=== PATIENT | female | born 1995 ===

== ENCOUNTER 2016-12-10 18:41 | Emergency (ER) | payer SELFPAY ==
[2016-12-10 19:04] VITALS: BP 98/60; TEMP 98.7
--- NOTE | 2016-12-10 19:37 | C.PDOC ---
History Of Present Illness 21 y/o female presents to ED with c/o sore throat onset 2 hours ago. Patient reports pain radiates to left ear. Notes pain with swallowing. Denies difficulty breathing. Patient has not taken anything for pain. Time Seen by Provider: 12/10/16 19:07 Chief Complaint (Nursing): ENT Problem History Per: Patient History/Exam Limitations: no limitations Onset/Duration Of Symptoms: Days Current Symptoms Are (Timing): Still Present Recent travel outside of the [place]: No Past Medical History Reviewed: Historical Data, Nursing Documentation, Vital Signs Vital Signs: Last Vital Signs Temp 98.7 F 12/10/16 19:01 Pulse 75 12/10/16 20:27 Resp 18 12/10/16 20:27 BP 98/60 L 12/10/16 19:01 Pulse Ox 98 12/10/16 20:27 - Medical History PMH: No Chronic Diseases Surgical History: No Surg Hx Family History: States: Unknown Family Hx - Social History Hx Alcohol Use: No Hx Substance Use: No - Immunization History Hx Tetanus Toxoid Vaccination: Yes Hx Influenza Vaccination: No Hx Pneumococcal Vaccination: No Review Of Systems Except As Marked, All Systems Reviewed And Found Negative. Constitutional: Negative for: Fever, Chills ENT: Positive for: Throat Pain. Negative for: Ear Discharge, Nose Congestion Cardiovascular: Negative for: Chest Pain Respiratory: Negative for: Wheezing Gastrointestinal: Negative for: Nausea, Vomiting Skin: Negative for: Rash Neurological: Negative for: Headache, Dizziness Physical Exam - Physical Exam Appears: Non-toxic, No Acute Distress Skin: Normal Color, Warm, Dry Head: Atraumatic, Normacephalic Eye(s): bilateral: Normal Inspection, EOMI Ear(s): Bilateral: Normal Oral Mucosa: Moist Gingiva: Normal Appearing Throat: Normal, No Erythema, No Exudate, No Drooling, No Mass Neck: Normal ROM, Supple Lymphatic: Adenopathy (left sided cervical lymph adenopathy, tender ) Chest: Symmetrical Cardiovascular: Rhythm Regular, No Murmur Respiratory: Normal Breath Sounds, No Rales, No Rhonchi, No Wheezing Gastrointestinal/Abdominal: Soft, No Tenderness, No Guarding Back: Normal Inspection Extremity: Normal ROM Neurological/Psych: Oriented x3, Normal Speech ED Course And Treatment O2 Sat by Pulse Oximetry: 97 (RA) Pulse Ox Interpretation: Normal Progress Note: Strep negative. Discussed with signs of concern, symptomatic treatment and follow up with PMD in 1-2 days. Disposition - Disposition Disposition: HOME/ ROUTINE Disposition Time: 19:58 Condition: GOOD Additional Instructions: Follow up with PMD in 1-2 days. Return to ER if symptoms persist or worsen. Prescriptions: Ibuprofen [Motrin] 400 mg PO Q6 PRN #20 tab PRN Reason: Fever Instructions: Pharyngitis (ED) Forms: [employer] (Thai) - Clinical Impression Clinical Impression: Pharyngitis - PA / [employer] / Resident Statement MD/DO has reviewed & agrees with the documentation as recorded. - Scribe Statement The provider has reviewed the documentation as recorded by the Scribe SM All medical record entries made by the Scribe were at my direction and personally dictated by me. I have reviewed the chart and agree that the record accurately reflects my personal performance of the history, physical exam, medical decision making, and the department course for this patient. I have also personally directed, reviewed, and agree with the discharge instructions and disposition.
[2016-12-10 20:27] VITALS: PULSE 75; RESP 18
[2016-12-10 21:35] VITALS: O2SAT 97
== END 2016-12-10 20:28 | disposition home or self-care (01) ==
LOC: C.ER 18:41
DX: J02.9 Acute pharyngitis, unspecified (principal)